=== PATIENT | female | born 1965 | race Caucasian/White ===

== ENCOUNTER 2019-09-18 18:46 | Observation (INO) | payer OTHER, SELFPAY ==
[2019-09-18] VITALS (7 sets, daily range): BP systolic 117–155; BP diastolic 70–91; PULSE 64–70; RESP 15–19; TEMP 35.9–36.8; O2SAT 97–100
--- NOTE | ~2019-09-18 | CT_ITS ---
EXAMINATION: CT BRAIN W/O DATE: 09/18/2019 19:25 INDICATION: Dizziness TECHNIQUE: Computed tomography (CT) of the head was performed without intravenous contrast. The dose- length product was 605.33 mGy-cm. The mA was adjusted according to patient size. Iterative reconstruc tion technique was employed. COMPARISON: No prior studies for comparison. FINDINGS: Normal brain parenchymal volume for age. Normal tovar-white differentiation. No acute intrac ranial hemorrhage, infarction, mass or mass effect. No ventriculomegaly or midline shift. Midline sagittal images demonstrate a normal corpus callosum, c raniovertebral junction and sella turcica. Basilar cisterns are patent. Paranasal sinuses and mastoids are pneumatized. No depressed skull fractures. There is a chronic defo rmity of the right lamina papyracea. IMPRESSION: 1. No acute intracranial abnormality. Reviewed, dictated and finalized at location A.
--- NOTE | ~2019-09-18 | XR_ITS ---
EXAMINATION: XR chest 1V portable 09/18/2019 19:30 INDICATION: Hypertension. Diabetes. Transient alteration of awareness. PROCEDURE: AP portable chest COMPARISON: No prior studies for comparison. FINDINGS: The lungs are clear. The cardiomediastinal silhouette is within normal limits. There are no pleural effusions. There is no pneumothorax suspected. IMPRESSION: 1: NO ACUTE CARDIOPULMONARY DISEASE. Reviewed, dictated and finalized at location A.
--- NOTE | 2019-09-18 18:57 | ECG_ITS ---
Measurements Intervals [place] Rate: 66 P: 50 PA: 166 QRS: 59 QRSD: 81 T: 46 QT: 415 QTc: 437 Interpretive Statements SINUS RHYTHM DELAYED PRECORDIAL R/S TRANSITION BORDERLINE ECG Electronically Signed On 09-18-2019 19:53:38 CDT by Primo Damon D.O.
--- NOTE | 2019-09-18 19:11 | ED.GENADULT ---
HPI - General Adult General Chief complaint: Dizziness Stated complaint: dizziness Time Seen by Provider: 09/18/19 19:02 Source: RN notes reviewed History of Present Illness HPI narrative: Patient presents emergency department from home via EMS for altered mental status. History is per the patient as well as family is present. Patient states she took a nap at around 3 PM this afternoon. According to the family the patient's mother tried to wake her up and was having a hard time waking her up and when she did wake her up her speech was slurred and she seemed mildly confused. Patient states she does not fully remember this episode. The current family states that the patient's mother had called him and he went over the house and patient continued to have some slurred speech and was telling a story did not make sense but noted no facial droop or weakness. Patient is currently more alert currently awake and alert x3 she denies any complaints at this time denies any fevers or chills chest pain shortness of breath abdominal pain nausea vomiting or any other symptoms. 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 She normally takes these 10 PM and 10 AM however today because she is not on her script girl she had taken her first dose at 8 AM and then took her second dose at approximately 2:30 PM before she took her nap today. Related Data Allergies Allergy/AdvReac Type Severity Reaction Status Date / Time Sulfa (Sulfonamide Allergy Itching Verified 09/18/19 19:17 Antibiotics) Review of Systems Review of Systems: Narrative: Gen.: Denies fevers or chills Eyes: Denies eye pain or visual change ENT: Denies congestion Respiratory: Denies shortness of breath or cough CV: Denies chest pain or palpitations GI: Denies abdominal pain nausea, emesis or diarrhea denies burning, urgency, frequency or hematuria Musculoskeletal: Denies back pain or muscle pain Neuro: See HPI Skin: Denies rash Except as documented, all other systems reviewed and negative [facility] Past Medical History Medical History (Updated 09/18/19 @ 20:46 by Keyshawn Luke DO) Diabetes mellitus Hypertension Social History Social History (Updated 09/18/19 @ 19:12 by Keyshawn Luke DO) Smoking packs per day: 0.5 Smoking cigarettes per day: 10.0 Gender identity (if verbalized by the patient): Female Exam Narrative: Exam Narrative: APPEARANCE: No acute distress, nontoxic, resting in bed HEENT: Normocephalic, atraumatic, OMM, TMs clear bilaterally EYES: PERRL, EOMI NECK: Supple, nontender, full range of motion without pain, no meningismus RESPIRATORY: No respiratory distress, clear to auscultation bilaterally with no rhonchi wheezing or rales CARDIOVASCULAR: RRR s murmur ABDOMINAL: Soft, nontender, nondistended MUSCULOSKELETAL: Moves all extremities. No clubbing, cyanosis or edema. NEURO: A and O ?3, following commands, speech normal, cranial nerves II through XII grossly intact,muscle strength 5 out of 5 bilateral upper and lower extremities SKIN:: Warm, dry. Normal Color PSYCHIATRIC: Normal affect/mood Course Course Emergency Course: Patient remains awake and alert x3 she will fall asleep in the bed but he is easily awoken suspect at this time current symptoms related to change in gabapentin dose and taking it less than 12 hours apart today Discussed Dr. Ramirez presentation work-up. Agrees with admission at this time Discussed with patient and family results of workup and diagnosis. Discussed need for admission. Patient and family understand and agree to current treatment plan Vital Signs Vital signs: Vital Signs Temperature 97.8 F 09/18/19 18:46 Pulse Rate 67 09/18/19 18:46 Respiratory Rate 15 09/18/19 18:46 Blood Pressure 132/91 H 09/18/19 18:46 Pulse Oximetry 100
[2019-09-18 19:17] LABS: Glucose Point of Care 100 (65-105)
[2019-09-18 19:23] LABS: Basophils Absolute Auto 0.1 K/mm3 (0.0-0.1); Basophils Percent Auto 0.8 % (0.2-1.2); Eosinophils Absolute Auto 0.2 K/mm3 (0-0.3); Eosinophils Percent Auto 2.5 % (0-4.4); Hematocrit 35.1 % (37.0-47.0); Hemoglobin 11.2 g/dL (12.0-15.0); Immature Granulocyte Absolute 0.01 K/mm3 (0.00-0.031); Immature Granulocyte Percent A 0.2 % (0-0.5); Lymphocytes Absolute Auto 3.24 K/mm3 (0.9-3.2); Mean Corpuscular HGB Conc 31.9 g/dl (32-36); Mean Corpuscular Hemoglobin 28.4 pg (26-34); Mean Corpuscular Volume 89.1 fl (80-100); Mean Platelet Volume 10.1 fl (7.4-10.4); Monocytes Absolute Auto 0.4 K/mm3 (0.1-0.6); Monocytes Percent Auto 6.8 % (2.6-8.5); Neutrophils Percent Auto 34.7 % (45.5-73.1); Platelet Count Result 331 k/mm3 (150-375); Red Blood Count 3.94 M/mm3 (4.2-5.4); Red Cell Distribution Width 14.1 % (11.5-14.5); White Blood Count 5.9 K/mm3 (4.5-10.0)
[2019-09-18 19:33] LABS: Partial Thromboplastin Time 27.5 SECONDS (22.3-36.8); Prothrombin Time 12.9 Seconds (11.1-14.7)
[2019-09-18 19:36] LABS: Alanine Aminotransferase 44 U/L (4-35); Albumin Level 4.1 g/dL (3.5-5.1); Alkaline Phosphatase 45 U/L (38-126); Aspartate Amino Transferase 33 U/L (14-36); Bilirubin,Total 0.3 mg/dL (0.2-1.3); Blood Urea Nitrogen 13 mg/dL (7-17); Calcium 9.7 mg/dL (8.4-10.2); Carbon Dioxide 26 mmol/L (22-30); Chloride 104 mmol/L (98-107); Estimated CRCL calculation 69 ml/min; Estimated Glomerular Filt Rate > 60; Glucose 106 mg/dL (65-105); Sodium 136 mmol/L (137-145)
[2019-09-18] MEDS: Please add drug allergy info to patient profile. 1 EACH XX (19:40)
[2019-09-18] MEDS: SODIUM CHLORIDE 0.9% IV 1,000 ML 999 ML IV CONT (19:40)
[2019-09-18 19:47] LABS: Troponin I < 0.012 ng/mL (0.000-0.034)
[2019-09-18 20:21] LABS: Add Urine Microscopic? NO; Appearance Urine Clear (Clear); Bilirubin Urine Negative (Negative); Blood Urine Negative (Negative); Color Urine Yellow (Yellow); Glucose Urine UA Negative (Negative); Ketones Urine Negative (Negative); Leukocyte Esterase Ur Negative LEU/UL (Negative); Nitrate Urine Negative (Negative); Protein Urine Negative (Negative); Specific Grav Ur 1.017 (1.001-1.035); Urobilinogen Urine Negative mg/dL (<2.0)
[2019-09-18] MEDS: ASPIRIN 81 MG CHEWABLE TABLET 324 MG PO (21:11)
--- NOTE | 2019-09-18 21:30 | PM.IMHP ---
H&P: HPI History of Present Illness Date/Time: 09/18/19 21:30 Chief complaint: Decreased responsiveness Narrative: This is a pleasant 53 year old Diabetic female with known chronic lower back pain from a herniated disk who presented to the hospital today secondary to decreased responsiveness. The patient is here visiting from [place] and recently juts had her gabapentin increased from 300 mg PO daily to twice daily. Her family found that they were having a hard time waking her up this afternoon around 3 pm. They also noticed that she had slurred speech when they woke up her. The patient was brought to the hospital for evaluation. The patient herself is easily arousable and is alert and oriented x 3. She has no focal deficits and denies any headache, fevers, chills, neck stiffness, blurry vision, difficulty swallowing, facial droop, focal weakness, numbness or tingling. The patient does not have any slurred speech on my encounter with her. ER workup has been unremarkable and CT brain was also negative for any acute intracranial pathology. We have been asked to admit the patient to observe her overnight. The patient has no previous history of heart disease or previous strokes. The patient's brother in law also mentioned that the patient today took one dose of gabapentin at 8 am this morning and her second dose around 2 pm this afternoon before she took a nap. She has no other complaints. Review of Systems Review of Systems: All systems reviewed & are unremarkable except as noted in HPI and below PMFSH Past Medical History Medical History Diabetes mellitus Hypertension Family History Family History (Updated 09/18/19 @ 22:36 by Arti Wagner RN) Father Asthma Sibling Asthma Mother Asthma Social History Social History Smoking packs per day: 0.75 Smoking cigarettes per day: 15.0 Years smoked: 30 Smoking pack-years: 22.50 Smoking status: Current every day smoker Tobacco type: cigarettes Alcohol intake: current Drinks per week: 1 Substance use: unknown Substance use type: does not use Gender identity (if verbalized by the patient): Female Spiritual care concerns: No Meds Home Medications and Allergies Home Medications Medication Instructions Recorded Confirmed Type aspirin 81 mg PO DAILY 09/18/19 09/18/19 History atorvastatin 80 mg PO DAILY 09/18/19 09/18/19 History bupropion HCl 200 mg PO DAILY 09/18/19 09/18/19 History famotidine 40 mg PO DAILY 09/18/19 09/18/19 History fenofibrate 160 mg PO DAILY 09/18/19 09/18/19 History fluoxetine 20 mg PO DAILY 09/18/19 09/18/19 History gabapentin 300 mg PO TID 09/18/19 09/18/19 History liraglutide [Victoza 2-Thomas] 1.2 mg SUBCUT DAILY 09/18/19 09/18/19 History losartan-hydrochlorothiazide 1 tablet PO DAILY 09/18/19 09/18/19 History meloxicam 7.5 mg PO DAILY 09/18/19 09/18/19 History metformin 500 mg PO BID 09/18/19 09/18/19 History propranolol 10 mg PO Q12H 09/18/19 09/18/19 History Allergies Allergy/AdvReac Type Severity Reaction Status Date / Time Sulfa (Sulfonamide Allergy Itching Verified 09/18/19 19:17 Antibiotics) Vital Signs Vital Signs - 24 hr 09/18/19 18:46 09/18/19 19:05 09/18/19 20:18 Temperature 36.6 C Pulse Rate 67 70 64 Respiratory Rate 15 17 19 Blood Pressure 132/91 H 123/70 119/76 Pulse Oximetry 100 97 100 Exam Const: General: cooperative and other (somnolent but easily arousable. ) Nutritional Appearance: obese Orientation/consciousness: patient oriented x3 HENMT: Head: normal to inspection General nose exam: Normal external nose present Face and sinus: normal facial exam Mouth: Yes Normal oral and palatal mucosa present and Yes oropharynx normal Eyes: Pupils: Equal, round and reactive pupils present EOM: EOMs intact bilaterally Neck: Neck: supple and no JVD Thyroid: thyroid normal Lymphati
[2019-09-18 21:31] LABS: Base Excess ABG -3.5 mEq/l (+/-2.0); Fractional Inspired Oxygen 21 %; HCO3 ABG 22.5 mEq/l (22.0-26.0); Oxygen Content ABG 15.3 %vol (16.0-22.0); Oxygen Saturation ABG 94.9 % (95.0-100.0); Oxyhemoglobin 91.9 % THb (90.0-100.0); PCO2 ABG 44.2 mmHg (35.0-45.0); PO2 ABG 79.8 mmHg (80.0-100.0); Total Hemoglobin 11.8 g/dL (12.0-18.0); pH ABG 7.324 (7.350-7.450)
[2019-09-18 21:32] LABS: Device ROOM AIR; Site Drawn RIGHT BRACHIAL
--- NOTE | 2019-09-18 22:26 | ADMGEN ---
This patient, Rita De La Vega, was admitted to Medical Room 249-01 at 2150. Patient/family oriented to hospital policies and general routines including ID bracelet, bed and alarms, visiting hours, pain management, procedures, bathroom and other care routines, personal items, smoking policy, room service/diet, and visiting hours. Valuables list has been completed. Information on how to activate the Rapid Response Team has been discussed. Patient/Family are encouraged to report perceived risks to care and to ask questions if they do not understand what they are told or what they should do.
[2019-09-18 23:09] LABS: Troponin I 0.012 ng/mL (0.000-0.034)
[2019-09-19] VITALS: PULSE 67
[2019-09-19 02:28] LABS: Basophils Absolute Auto 0.1 K/mm3 (0.0-0.1); Basophils Percent Auto 1.2 % (0.2-1.2); Eosinophils Absolute Auto 0.2 K/mm3 (0-0.3); Eosinophils Percent Auto 3.3 % (0-4.4); Hematocrit 33.9 % (37.0-47.0); Hemoglobin 10.6 g/dL (12.0-15.0); Immature Granulocyte Absolute 0.01 K/mm3 (0.00-0.031); Immature Granulocyte Percent A 0.2 % (0-0.5); Lymphocytes Absolute Auto 3.03 K/mm3 (0.9-3.2); Lymphocytes Percent Auto 58.6 % (18.3-44.2); Mean Corpuscular HGB Conc 31.3 g/dl (32-36); Mean Corpuscular Volume 89.7 fl (80-100); Mean Platelet Volume 10.1 fl (7.4-10.4); Monocytes Absolute Auto 0.4 K/mm3 (0.1-0.6); Monocytes Percent Auto 6.8 % (2.6-8.5); Neutrophils Absolute Auto 1.6 K/mm3 (1.3-6.7); Neutrophils Percent Auto 29.9 % (45.5-73.1); Platelet Count Result 324 k/mm3 (150-375); Red Blood Count 3.78 M/mm3 (4.2-5.4); Red Cell Distribution Width 14.1 % (11.5-14.5); White Blood Count 5.2 K/mm3 (4.5-10.0)
[2019-09-19 02:39] LABS: Anion Gap 7.8 mmol/L (7-16); Blood Urea Nitrogen 12 mg/dL (7-17); Carbon Dioxide 27 mmol/L (22-30); Chloride 106 mmol/L (98-107); Estimated CRCL calculation 78 ml/min; Estimated Glomerular Filt Rate > 60; Glucose 117 mg/dL (65-105); Potassium 3.8 mmol/L (3.4-5.0); Sodium 137 mmol/L (137-145)
[2019-09-19 02:53] LABS: Troponin I 0.016 ng/mL (0.000-0.034)
[2019-09-19 04:00] VITALS: PULSE 63
[2019-09-19 05:59] VITALS: BP 146/76; PULSE 66; RESP 16; TEMP 36.1; O2SAT 92
[2019-09-19 07:54] LABS: Glucose Point of Care 145 (65-105)
[2019-09-19 08:00] VITALS: PULSE 69
[2019-09-19] MEDS: ATORVASTATIN 40 MG TABLET 80 MG PO (08:23)
[2019-09-19] MEDS: ASPIRIN 81 MG CHEWABLE TABLET PO (08:24)
[2019-09-19] MEDS: metFORMIN HCL 500 MG TABLET PO (08:24)
[2019-09-19] MEDS: FENOFIBRATE 160 MG TABLET PO (08:24)
[2019-09-19] MEDS: FAMOTIDINE 20 MG TABLET 40 MG PO (08:24)
--- NOTE | 2019-09-19 09:24 | PM.DS ---
DS: Admitting Diagnosis Admitting Diagnosis Admitting Diagnosis: Unspecified symptoms and signs involving cognitive functions and awareness DS: Discharge Diagnosis Discharge Diagnosis (1) Decreased alertness: Code(s): R41.9 - Unspecified symptoms and signs involving cognitive functions and awareness Status: Resolved Assessment and Plan: Date of Service 09/19/19 Ms. De La Vega is a pleasant 53yo F with history of type 2 diabetes mellitus and hypertension from [place] in town visiting family who presented to the ED for evaluation of decreased responsiveness. Family had difficulty waking her from a nap and patient's speech was slurred. Patient noted she had recently been prescribed a higher dose of gabapentin that she was titrating up to. She was previously taking 300mg daily to titrate up to 300mg TID. Day of arrival, she had taken 300mg BID at 8am and again at 2pm prior to a nap. 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 CT brain and chest XR were normal. Telemetry in normal sinus rhythm. She is feeling well this morning, completely back to baseline and eager for discharge. She was hemodynamically stable for discharge 09/19/19 and will follow up with her PCP regarding her gabapentin titration. (2) Diabetes mellitus: Qualifiers: Diabetes mellitus type: type 2 Diabetes mellitus longterm insulin use: without longterm use Diabetes mellitus complication status: without complication Qualified Code(s): E11.9 - Type 2 diabetes mellitus without complications Code(s): E11.9 - Type 2 diabetes mellitus without complications Status: Chronic Assessment and Plan: Continue metformin and Victoza. (3) Hypertension: Qualifiers: Hypertension type: unspecified Qualified Code(s): I10 - Essential (primary) hypertension Code(s): I10 - Essential (primary) hypertension Status: Chronic Assessment and Plan: Stable, continue home antihypertensives. DS: Summary Time Spent with Patient Time attestation: Total time spent providing and/or coordinating discharge services: 35 minutes Exam Narrative: Exam Narrative: General: Female resting comfortably sitting up in bed in no acute distress. HEENT: Normocephalic, EOMI, PERRL, oral mucosa moist. Cardiovascular: Rate and rhythm are regular. No notable murmur, rub, or gallop. Respiratory: Lungs clear to auscultation all blackwell. Non-labored breathing. Abdomen: Soft, non-tender, non-distended, bowel sounds present. Extremities: Peripheral pulses intact. No edema. Neuro: No focal neurological deficits. Speech is clear. Cranial nerves II-XII intact as tested. Metal Model Builder strength, upper and lower extremity strength is normal and equal JANE. Tongue is midline, no facial asymmetry. DS: Data Data Completed and Pending Labs on day of discharge: Last Vital Signs Temp 96.9 F L 09/19/19 05:59 Pulse 69 09/19/19 08:00 Resp 16 09/19/19 05:59 BP 146/76 H 09/19/19 05:59 Pulse Ox 92 09/19/19 05:[address] 09/18/19 19:27 IMPRESSION: 1. No acute intracranial abnormality. Chest X-Ray 09/18/19 19:32 IMPRESSION: 1: NO ACUTE CARDIOPULMONARY DISEASE. Laboratory Tests 09/19/19 02:08 09/19/19 02:08 09/19/19 07:52 POC Capillary Glucose 145 H Discharge Plan Discharge Attending physician on discharge: Raúl Morejon Discharging Clinician: Liliya Law Anticipated Discharge Date/Time: 09/19/19 09:17 Patient Disposition: Home, Self-Care Activity: as tolerated Diet: as tolerated Discharge Instructions: Call your primary care provider to schedule a follow up appointment when you get back into town so you can establish a plan for titrating your gabapentin. Be sure to drink plenty of fluids to stay hydrated. Continue to monitor your sym
== END 2019-09-19 10:06 | disposition home or self-care (01) ==
LOC: ANHED 20:46 → ANH2MED 21:36
PROVIDERS: Admitting Provider Family Medicine; Emergency Provider Emergency Medicine; Visit Provider Internal Medicine
DX: R41.9 Unspecified symptoms and signs involving cognitive functions and awareness (principal); E11.9 Type 2 diabetes mellitus without complications; I10 Essential (primary) hypertension; M51.27 Other intervertebral disc displacement, lumbosacral region; G89.29 Other chronic pain; F17.210 Nicotine dependence, cigarettes, uncomplicated; Z79.82 Long term (current) use of aspirin; Z79.84 Long term (current) use of oral hypoglycemic drugs; Z79.899 Other long term (current) drug therapy
CPT/HCPCS: 36415; 36600; 70450; 71045; 80048; 80053; 81003; 82805; 82948; 84443; 84484; 85025; 85610; 85730; 93005; 96360; 99285; A9270; G0378; J7030

== ENCOUNTER 2022-07-25 06:35 | Observation (INO) | payer OTHER, SELFPAY ==
[2022-07-25] VITALS (7 sets, daily range): BP systolic 110–176; BP diastolic 65–98; PULSE 64–82; RESP 14–18; TEMP 35.4–36.7; O2SAT 96–100
--- NOTE | ~2022-07-25 | CT_ITS ---
CT of the Abdomen and Pelvis: Indication: Abdominal pain Technique: 2.5 mm axial scans were obtained through the abdomen and pelvis following intravenous adm inistration of 100 cc of Omnipaque 350. Dose reduction technique was used on this scan by utilizing a utomated exposure control and iterative reconstruction technique. The dose-length product (DLP) was 5 66.61 mGy-cm. Findings: Scans through the lung bases demonstrate 4 mm left lower lobe pulmonary nodule. There is probable diffuse fatty infiltration of the liver. The spleen, pancreas, gallbladder, adrenal s and kidneys are within normal limits. There are atherosclerotic calcifications of the aorta. No ly mphadenopathy. There is probable wall thickening and mild surrounding inflammatory change at the distal gastric body /gastric antrum extending to the duodenal bulb. No definite free air seen. No abscess identified. No bowel obstruction. Images through the pelvis were performed. Urinary bladder unremarkable. No adnexal mass seen. No asci bryan. Impression: Probable wall thickening with mild sparing inflammatory change the gastric antrum/duodenal bulb. Cons ider peptic ulcer disease or other gastritis/duodenitis. No CT evidence for perforation or abscess. Probable diffuse fatty infiltration of liver. 4 mm left lower lobe pulmonary nodule. According to Fleischner Society criteria, for a low-risk patie nt, no further follow-up required. For a high-risk patient, consider 12 month follow-up CT. Reviewed, dictated and finalized at [facility]. Impression: Probable wall thickening with mild sparing inflammatory change the gastric antr um/duodenal bulb. Consider peptic ulcer disease or other gastritis/duodenitis. No CT evidence for perforation or abscess. Probable diffuse fatty infiltration of liver. 4 mm left lower lobe pulmonary nodule. According to Fleischner Society criteria , for a low-risk patient, no further follow-up required. For a high-risk patien t, consider 12 month follow-up CT.
--- NOTE | 2022-07-25 07:17 | PC.NURSE ---
patient states abdominal pain began yesterday and got worse in the evening. patient also began vomiting and having diarrhea that began yesterday afternoon/evening
[2022-07-25 07:33] LABS: Basophils Percent Auto 0.3 % (0.2-1.2); Eosinophils Absolute Auto 0.2 K/mm3 (0-0.3); Eosinophils Percent Auto 1.7 % (0-4.4); Hematocrit 42.3 % (37.0-47.0); Hemoglobin 13.4 g/dL (12.0-15.0); Immature Granulocyte Absolute 0.04 K/mm3 (0.00-0.031); Immature Granulocyte Percent A 0.3 % (0-0.5); Lymphocytes Absolute Auto 1.72 K/mm3 (0.9-3.2); Lymphocytes Percent Auto 14.6 % (18.3-44.2); Mean Corpuscular HGB Conc 31.7 g/dl (32-36); Mean Corpuscular Hemoglobin 28.9 pg (26-34); Mean Corpuscular Volume 91.4 fl (80-100); Mean Platelet Volume 9.6 fl (7.4-10.4); Monocytes Absolute Auto 0.7 K/mm3 (0.1-0.6); Monocytes Percent Auto 5.9 % (2.6-8.5); Neutrophils Absolute Auto 9.1 K/mm3 (1.3-6.7); Neutrophils Percent Auto 77.2 % (45.5-73.1); Platelet Count Result 453 k/mm3 (150-375); Red Blood Count 4.63 M/mm3 (4.2-5.4); Red Cell Distribution Width 13.9 % (11.5-14.5); White Blood Count 11.8 K/mm3 (4.5-10.0)
[2022-07-25] MEDS: ONDANSETRON INJ 4 MG/2 ML VIAL IV PUSH (07:41)
--- NOTE | 2022-07-25 07:41 | ED.ABDPAIN ---
HPI - Abdominal Pain General Chief Complaint: Abdominal Pain Stated Complaint: abd pain Time Seen by Provider: 07/25/22 07:41 Source: patient History of Present Illness HPI narrative: 56 years old white female presents with upper abdominal pain that started yesterday, intermittent, steady today. Sharp stabbing, no radiation, associated with nausea and vomiting. Patient denies any fever or history of abdominal surgery. History of diabetes, hypertension, hyperlipidemia, asthma, pancreatitis, alcohol use and tobacco abuse. Related Data Home Medications Medication Instructions Recorded Confirmed aspirin 81 mg chewable tablet 81 mg PO DAILY 09/18/19 09/18/19 atorvastatin 80 mg tablet 80 mg PO DAILY 09/18/19 09/18/19 bupropion HCl 200 mg tablet,12 hr 200 mg PO DAILY 09/18/19 09/18/19 sustained-release famotidine 40 mg tablet 40 mg PO DAILY 09/18/19 09/18/19 fenofibrate 160 mg tablet 160 mg PO DAILY 09/18/19 09/18/19 fluoxetine 20 mg capsule 20 mg PO DAILY 09/18/19 09/18/19 liraglutide 0.6 mg/0.1 mL (18 mg/3 1.2 mg subcut DAILY 09/18/19 09/18/19 mL) subcutaneous pen injector (Keelr 2-Thomas) losartan 50 mg-hydrochlorothiazide 1 tablet PO DAILY 09/18/19 09/18/19 12.5 mg tablet meloxicam 7.5 mg tablet 7.5 mg PO DAILY 09/18/19 09/18/19 metformin 500 mg tablet 500 mg PO BID 09/18/19 09/18/19 propranolol 10 mg tablet 10 mg PO Q12H 09/18/19 09/18/19 Allergies Allergy/AdvReac Type Severity Reaction Status Date / Time Sulfa (Sulfonamide Allergy Itching Verified 07/25/22 07:38 Antibiotics) Review of Systems Review of Systems: All systems reviewed & are unremarkable except as noted in HPI and below PMFSH Past Medical History Medical History Diabetes mellitus Hypertension Family History Family History Father Asthma Sibling Asthma Mother Asthma Social History Social History Smoking packs per day: 0.75 Smoking cigarettes per day: 15.0 Years smoked: 30 Smoking pack-years: 22.50 Smoking status: Current every day smoker Tobacco type: cigarettes Alcohol intake: current Drinks per week: 1 Substance use: unknown Substance use type: does not use Gender identity (if verbalized by the patient): Female Spiritual care concerns: No Exam Narrative: General appearance: Well-developed, well-nourished Skin: Normal color Head: Normocephalic, nontraumatic Eyes: Clear conjunctiva ENT: Oropharynx normal, ears normal, nose normal Neck: Supple, nontender Chest and respiratory: Airway patent, no respiratory distress, no accessory muscle use Heart: Regular rate/rhythm Abdomen: Diffuse tenderness mainly upper abdomen bilaterally in the epigastric area. Slight guarding, no rebound, quiet bowel sounds Vascular: Normal peripheral pulses, normal capillary refill. 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 Date: 07/25/22 Time: 08:24 Consultations Consultation #1: [place] Date: 07/25/22 Time: 09:44 Vital Signs Vital signs: Vital Signs Temperature 36.7 C 07/25/22 06:41 Pulse Rate 81 07/25/22 06:41 Respiratory Rate 18 07/25/22 06:41 Blood Pressure 176/98 H 07/25/22 06:41 Pulse Oximetry 100 07/25/22 06:41 Oxygen Delivery Room Air 07/25/22 06:41 Temperature 36.7 C 07/25/22 06:41 Pulse Rate 82 07/25/22 07:37 Respiratory Rate 16
[2022-07-25 07:47] LABS: Alanine Aminotransferase 26 U/L (6-35); Albumin Level 4.4 g/dL (3.5-5.1); Alkaline Phosphatase 59 U/L (38-126); Anion Gap 9 mmol/L (8-16); Aspartate Amino Transferase 23 U/L (14-36); Bilirubin,Total 0.5 mg/dL (0.2-1.3); Blood Urea Nitrogen 11 mg/dL (7-17); Carbon Dioxide 29 mmol/L (22-30); Chloride 97 mmol/L (98-107); Estimated CRCL calculation 65 ml/min; Estimated Glomerular Filt Rate > 60; Glucose 163 mg/dL (65-110); Lipase 461 U/L (23-300); Potassium 4.1 mmol/L (3.4-5.0); Sodium 135 mmol/L (137-145)
[2022-07-25] MEDS: HYDROmorphone HCL INJ (*CRX) 1 MG/ML SYR 0.5 MG IV PUSH ×3 (08:02→20:41)
[2022-07-25] MEDS: SODIUM CHLORIDE 0.9% IV 1,000 ML 999 ML IV CONT (08:02)
--- NOTE | 2022-07-25 08:06 | PC.NURSE ---
pt taken to CT at this time.
--- NOTE | 2022-07-25 08:16 | PC.NURSE ---
pt arriving back to room from CT at this time
[2022-07-25] MEDS: PANTOPRAZOLE SODIUM IV 40 MG VIAL IV PUSH ×2 (10:18→17:09)
[2022-07-25] MEDS: SODIUM CHLORIDE 0.9% IV 1,000 ML 150 ML IV CONT ×3 (10:19→23:57)
[2022-07-25 10:46] LABS: Appearance Urine Clear (Clear); Bilirubin Urine Negative (Negative); Blood Urine Negative (Negative); Color Urine Yellow (Yellow); Glucose Urine UA Negative (Negative); Ketones Urine Negative (Negative); Leukocyte Esterase Ur Negative LEU/UL (Negative); Nitrate Urine Negative (Negative); Protein Urine Negative (Negative); Urobilinogen Urine 0.2 mg/dL (<2.0)
[2022-07-25 10:52] LABS: Add Urine Microscopic? NO; Specific Grav Ur 1.073 (1.001-1.035)
--- NOTE | 2022-07-25 11:19 | PC.NURSE ---
report received from Nessa CHRISTOPHER
--- NOTE | 2022-07-25 12:25 | PC.NURSE ---
[id number] Admission Note: The patient,Rita De La Vega,56 y/o, was given written information regarding hospital policies, unit procedures and contact persons. Patient's smoking status: Current every day smoker.
--- NOTE | 2022-07-25 12:30 | PM.IMHP ---
H&P: HPI History of Present Illness Date/Time: 07/25/22 12:30 Chief Complaint: abdominal pain Narrative: this is a 56-year-old female patient who came to the emergency room with complaint of upper abdominal pain that 30 yesterday with intermittent yesterday but is now steady today. The patient stated is sharp and stabbing. No radiation. The patient had a history pancreatitis in the past. No previous history of abdominal surgery. The patient does have diabetes and stated that she had pancreatitis in the past due to her High triglycerides. White count 11.8. Blood sugar 163. Lipase 461. Abdominal pelvis CT was read as a follow-upProbable wall thickening with mild sparing inflammatory change the gastric antrum/duodenal bulb. Consider peptic ulcer disease or other gastritis/duodenitis. No CT evidence for perforation or abscess. Probable diffuse fatty infiltration of liver. 4 mm left lower lobe pulmonary nodule. According to Fleischner Society criteria, for a low-risk patient, no further follow-up required. For a high-risk patient, consider [address] the patient was given Zofran, IV fluids, Dilaudid when Protonix. The patient is being admitted to observation status on the date of service of 07/25/2022. Review of Systems Review of Systems: All systems reviewed & are unremarkable except as noted in HPI and below Constitutional: Constitutional: Reports as per HPI and Reports no additional constitutional complaints Eyes: Eyes: Reports as per HPI and Reports no additional eye complaints ENT: Reports system reviewed and no additional complaints, except as documented and Reports Normal hearing present Cardiovascular: Cardiovascular: Reports no additional cardiovascular complaints Respiratory: Respiratory: Reports no additional respiratory complaints and Reports no additional respiratory complaints Gastrointestinal: Gastrointestinal: Reports as per HPI and Reports no additional gastrointestinal complaints Musculoskeletal: Musculoskeletal: Reports no additional musculoskeletal complaints Integumentary/Breasts: Skin/Breast: Reports system reviewed and no additional complaints, except as docu and Reports as per HPI Neurologic: Reports system reviewed and no additional complaints, except as documented, Reports as per HPI and Reports Normal hearing present Psychiatric: Psychiatric: Reports no additional psychiatric complaints and Reports as per HPI Endocrine: Endocrine: Reports no additional endocrine complaints Hematologic/Lymphatic: Hematologic/Lymphatic: Reports no additional hematologic/lymphatic complaints Allergic/Immunologic: Allergic/Immunologic: Reports no additional allergic/immunologic complaints [facility] Past Medical History Medical History (Updated 07/25/22 @ 14:55 by Constance Rodriguez NP) Asthma Benign familial tremor Depression with anxiety Diabetes mellitus Hyperlipidemia Hypertension Peptic ulcer disease Surgical History Surgical History (Updated 07/25/22 @ 14:55 by Constance Rodriguez NP) H/O esophagogastroduodenoscopy Family History Family History (Updated 07/25/22 @ 14:57 by Constance Rodriguez NP) Father Diabetes mellitus Hypertension Hyperlipidemia Familial tremor Mother Cholangiocarcinoma Social History Social History (Updated 07/25/22 @ 14:58 by Constance Rodriguez NP) Social History: the patient stated she does continue to smoke cigarettes. She rarely drinks. She has no children and she is single. She lives in [facility] but is here visiting her mother who has terminal illness. She has an occasional glass of wine and occasional marijuana. Code status full code Smoking packs per day: 0.75 Smoking cigarettes per day: 15.0 Years smoked: 30 Smoking pack-years: 22.50 Smoking status: Former smoker Tobacco type: cigarettes Alcohol intake: current Drinks per week: 3 Substance use: unknown Substance use type: does not use Lack of Transportation:
--- NOTE | 2022-07-25 17:04 | WPDGICN ---
Assessment and Plan Assessment and plan (1) Epigastric pain: Code(s): R10.13 - Epigastric pain Status: Acute Assessment and Plan: better but not gone will repeat egd in am, ct scan possible PUD (2) Nausea and vomiting in adult: Code(s): R11.2 - Nausea with vomiting, unspecified Status: Acute Assessment and Plan: improved medical treatment (3) Abnormal CT scan, stomach: Code(s): R93.3 - Abnormal findings on diagnostic imaging of other parts of digestive tract Status: Acute Assessment and Plan: will proceed with egd in am (4) Diabetes mellitus: Qualifiers: Diabetes mellitus type: type 2 Diabetes mellitus jail insulin use: without jail use Diabetes mellitus complication status: without complication Qualified Code(s): E11.9 - Type 2 diabetes mellitus without complications Code(s): E11.9 - Type 2 diabetes mellitus without complications Status: Chronic (5) Hypertension: Qualifiers: Hypertension type: unspecified Qualified Code(s): I10 - Essential (primary) hypertension Code(s): I10 - Essential (primary) hypertension Status: Chronic (6) History of pancreatitis: Code(s): Z87.19 - Personal history of other diseases of the digestive system Status: Acute Assessment and Plan: related to TG GI Consult Note Consult date/time: 07/25/22 17:04 Reason for consult: n/v, abnormal stomach by ct scan HPI: Rita De La Vega is a 56 year old female with history of pancreatitis due to high TG, DM. She is here with new onset of severe epigastric pain associated to n/v, pain sharp and stabbing.?No radiation.? She thought that could be another episode of pancreatitis. She is from [place] and is visiting family, decided to come to ER. She has GERD and using famotidine, about 3 months ago had egd/colonoscopy- unremarkable. Blood work white count 11.8.? Blood sugar 163.? Lipase 461.? Abdominal pelvis CT reviewed and had probable wall thickening with mild sparing inflammatory change the gastric antrum/duodenal bulb. Consider peptic ulcer disease or other gastritis/duodenitis. No CT evidence for perforation or abscess. Probable diffuse fatty infiltration of liver. No more nausea but still some pain. Review of Systems Constitutional: Constitutional: Denies chills Eyes: Eyes: Denies blurry vision ENT: Reports Normal hearing present Cardiovascular: Cardiovascular: Denies chest pain Respiratory: Respiratory: Denies chest congestion Gastrointestinal: Gastrointestinal: Reports abdominal pain and Reports nausea Genitourinary: Genitourinary: Denies hematuria Musculoskeletal: Musculoskeletal: Denies arthralgias Integumentary/Breasts: Skin/Breast: Denies rash Neurologic: Denies Abnormal speech present Psychiatric: Psychiatric: Denies behavioral changes [facility] Past Medical History Medical History (Updated 07/25/22 @ 17:08 by Nasir Samuels MD) Abnormal CT scan, stomach Asthma Benign familial tremor Depression with anxiety Diabetes mellitus Epigastric pain History of pancreatitis Hyperlipidemia Hypertension Nausea and vomiting in adult Peptic ulcer disease Surgical History Surgical History (Updated 07/25/22 @ 14:55 by Constance Rodriguez NP) H/O esophagogastroduodenoscopy Family History Family History (Updated 07/25/22 @ 14:57 by Constance Rodriguez NP) Father Diabetes mellitus Hypertension Hyperlipidemia Familial tremor Mother Cholangiocarcinoma Social History Social History (Updated 07/25/22 @ 14:58 by Constance Rodriguez NP) Social History: the patient stated she does continue to smoke cigarettes. She rarely drinks. She has no children and she is single. She lives in [facility] but is here visiting her mother who has terminal illness. She has an occasional glass of wine and occasional marijuana. Code status full code Smoking packs per day: 0.75 Smoking
[2022-07-25] MEDS: traMADol HCL (*CRX) 25 MG TABLET PO (17:06)
[2022-07-25] MEDS: GABAPENTIN 300 MG CAPSULE 600 MG PO (17:08)
[2022-07-25] MEDS: FLUTICASONE PROP 44 MCG (*SP) 10.6 GM 2 PUFF INHALATION (20:16)
[2022-07-25 21:49] LABS: Glucose Point of Care 121 mg/dl (65-105)
[2022-07-26] VITALS (7 sets, daily range): BP systolic 104–155; BP diastolic 57–79; PULSE 59–75; RESP 15–20; TEMP 35.6–36.4; O2SAT 96–100
[2022-07-26] MEDS: PANTOPRAZOLE SODIUM IV 40 MG VIAL IV PUSH ×2 (01:22→12:43)
[2022-07-26] MEDS: traMADol HCL (*CRX) 25 MG TABLET PO (05:30)
[2022-07-26 06:19] LABS: Basophils Percent Auto 0.2 % (0.2-1.2); Eosinophils Absolute Auto 0.2 K/mm3 (0-0.3); Eosinophils Percent Auto 3.9 % (0-4.4); Hematocrit 33.3 % (37.0-47.0); Hemoglobin 10.4 g/dL (12.0-15.0); Immature Granulocyte Absolute 0.01 K/mm3 (0.00-0.031); Immature Granulocyte Percent A 0.2 % (0-0.5); Lymphocytes Absolute Auto 1.86 K/mm3 (0.9-3.2); Lymphocytes Percent Auto 40.8 % (18.3-44.2); Mean Corpuscular HGB Conc 31.2 g/dl (32-36); Mean Corpuscular Hemoglobin 29.2 pg (26-34); Mean Corpuscular Volume 93.5 fl (80-100); Mean Platelet Volume 9.8 fl (7.4-10.4); Monocytes Absolute Auto 0.3 K/mm3 (0.1-0.6); Monocytes Percent Auto 6.8 % (2.6-8.5); Neutrophils Absolute Auto 2.2 K/mm3 (1.3-6.7); Neutrophils Percent Auto 48.1 % (45.5-73.1); Platelet Count Result 339 k/mm3 (150-375); Red Blood Count 3.56 M/mm3 (4.2-5.4); White Blood Count 4.6 K/mm3 (4.5-10.0)
[2022-07-26 06:35] LABS: Lactic Acid Reflex 0.8 mmol/L (0.7-2.0)
[2022-07-26] MEDS: SODIUM CHLORIDE 0.9% IV 1,000 ML 150 ML IV CONT (06:36)
[2022-07-26 06:43] LABS: Alanine Aminotransferase 23 U/L (6-35); Albumin Level 3.2 g/dL (3.5-5.1); Alkaline Phosphatase 44 U/L (38-126); Anion Gap 1 mmol/L (8-16); Aspartate Amino Transferase 25 U/L (14-36); Bilirubin,Total 0.3 mg/dL (0.2-1.3); Blood Urea Nitrogen 6 mg/dL (7-17); Calcium 8.1 mg/dL (8.4-10.2); Carbon Dioxide 31 mmol/L (22-30); Chloride 105 mmol/L (98-107); Cholesterol 149 mg/dL (0-200); Estimated CRCL calculation 73 ml/min; Estimated Glomerular Filt Rate > 60; Glucose 128 mg/dL (65-110); HDL Direct 33 mg/dL; Lipase 128 U/L (23-300); Magnesium 1.5 mg/dL (1.6-2.3); Potassium 3.7 mmol/L (3.4-5.0); Sodium 137 mmol/L (137-145); Triglycerides 301 mg/dL (<150)
[2022-07-26 06:54] LABS: LDL Cholesterol Direct 80 mg/dL
[2022-07-26] MEDS: FLUTICASONE PROP 44 MCG (*SP) 10.6 GM 2 PUFF INHALATION (08:15)
[2022-07-26] MEDS: MAGNESIUM SULFATE 3GM/D5W100ML 3 GM/100 ML BAG IVPB (08:27)
[2022-07-26 08:29] LABS: Glucose Point of Care 117 mg/dl (65-105)
[2022-07-26] MEDS: ATORVASTATIN 40 MG TABLET 80 MG PO (10:22)
[2022-07-26] MEDS: FLUoxetine HCL 20 MG CAPSULE PO (10:23)
[2022-07-26] MEDS: buPROPion HCL XL (24 HR) 150 MG TABCR PO (10:24)
[2022-07-26] MEDS: GABAPENTIN 300 MG CAPSULE 600 MG PO (10:24)
[2022-07-26 11:31] LABS: Glucose Point of Care 130 mg/dl (65-105)
[2022-07-26 13:14] LABS: Glucose Point of Care 102 mg/dl (65-105)
--- NOTE | 2022-07-26 13:30 | WPDANESEPPF ---
Anes - Initial Pre Proc Eval Procedure: Operation Date: 07/26/22 14:15 Proposed Procedures p Esophagogastroduodenoscopy - Nasir Samuels MD Date/Time: 07/26/22 13:30 Surgeon: Reed Ventura MD Pre Op Diagnosis: Abdominal Pain,Intractable Vomiting,Elevated Lipas Patient Data Age: 56 Gender: F Height: 1.55 m Weight: 74.84 kg Last Vital Signs Temp 36.4 C 07/26/22 13:16 Pulse 65 07/26/22 13:16 Resp 18 07/26/22 13:16 BP 138/69 07/26/22 13:16 Pulse Ox 100 07/26/22 13:16 O2 Del Method Room Air 07/26/22 13:16 Allergies Allergy/AdvReac Type Severity Reaction Status Date / Time almond Allergy Swelling Verified 07/26/22 13:14 Sulfa (Sulfonamide Allergy Itching Verified 07/26/22 13:14 Antibiotics) Home Medications Medication Instructions Recorded Confirmed Type aspirin 81 mg chewable tablet 81 mg PO DAILY 09/18/19 07/25/22 History atorvastatin 80 mg tablet 80 mg PO DAILY 09/18/19 07/25/22 History bupropion HCl 200 mg tablet,12 hr 150 mg PO DAILY 09/18/19 07/25/22 History sustained-release famotidine 40 mg tablet 40 mg PO DAILY 09/18/19 07/25/22 History fenofibrate 160 mg tablet 160 mg PO DAILY 09/18/19 07/25/22 History fluoxetine 20 mg capsule 20 mg PO DAILY 09/18/19 07/25/22 History losartan 50 mg-hydrochlorothiazide 1 tablet PO DAILY 09/18/19 07/25/22 History 12.5 mg tablet metformin 500 mg tablet 1,000 mg PO BID 09/18/19 07/25/22 History propranolol 10 mg tablet 10 mg PO Q12H PRN Tremor(S) 09/18/19 07/25/22 History albuterol sulfate 90 mcg/actuation 2 puff inhalation Q4H PRN 07/25/22 07/25/22 History aerosol inhaler Shortness Of Breath Or Wheezing ciclesonide 80 mcg/actuation 1 puff inhalation DAILY 07/25/22 07/25/22 History aerosol inhaler (Alvesco) gabapentin 300 mg capsule 600 mg PO BID 07/25/22 07/25/22 History semaglutide 2 mg/dose (8 mg/3 mL) 2 mg subcut WEEKLY 07/25/22 07/25/22 History subcutaneous pen injector (Ozempic) Laboratory Tests 07/25/22 07/26/22 07/26/22 20:49 05:53 08:26 WBC 4.6 K/mm3 (4.5-10.0) RBC 3.56 L M/mm3 (4.2-5.4) Hgb 10.4 L D g/dL (12.0-15.0) Hct 33.3 L % (37.0-47.0) MCV 93.5 fl (80-100) MCH 29.2 pg (26-34) MCHC 31.2 L g/dl (32-36) RDW 14.0 % (11.5-14.5) Plt Count 339 k/mm3 (150-375) MPV 9.8 fl (7.4-10.4) Immature Gran % (Auto) 0.2 % (0-0.5) Neut % (Auto) 48.1 % (45.5-73.1) Lymph % (Auto) 40.8 % (18.3-44.2) [place] % (Auto) 6.8 % (2.6-8.5) Eos % (Auto) 3.9 % (0-4.4) Baso % (Auto) 0.2 % (0.2-1.2) Lymph # (Auto) 1.86 K/mm3 (0.9-3.2) [place] # (Auto) 0.3 K/mm3 (0.1-0.6) Eos # (Auto) 0.2 K/mm3 (0-0.3) Baso # (Auto) 0.0 K/mm3 (0.0-0.1) Abs Immat Gran (auto) 0.01 K/mm3 (0.00-0.031) Absolute Neuts (auto) 2.2 K/mm3 (1.3-6.7) Absolute Nucleated RBC 0.0 K/mm3 (0.0-0.012) Nucleated RBC % 0.0 % (0.0-0.2) Sodium 137 mmol/L (137-145) Potassium 3.7 mmol/L (3.4-5.0) Chloride 105 mmol/L (98-107) Carbon Dioxide 31 H mmol/L (22-30) Anion Gap 1 L mmol/L (8-16) BUN 6 L D mg/dL (7-17) Creatinine 0.70 mg/dL (0.7-1.0) Estim Creat Clear Calc 73 ml/min Estimated GFR > 60 (59 - ) Glucose 128 H mg/dL (65-110) POC Capillary Glucose 121 H mg/dl 117 H mg/dl (65-105) (65-105) Lactic Acid 0.8 mmol/L (0.7-2.0) Calcium 8.1 L mg/dL (8.4-10.2) Magnesium 1.5 L mg/dL (1.6-2.3) Total Bilirubin 0.3 mg/dL (0.2-1.3) AST 25 U/L (14-36) ALT 23 U/L (6-35) Alkaline Phosphatase 44 U/L (38-126) Total Protein 6.0 L g/dL (6.3-8.2) Albumin 3.2 L g/dL (3.5
[2022-07-26] MEDS: LACTATED RINGERS 1,000 ML 150 ML IV CONT (14:30)
[2022-07-26 14:52] LABS: Glucose Point of Care 88 mg/dl (65-105)
--- NOTE | 2022-07-26 15:34 | PM.DS ---
DS: Admitting Diagnosis Discharge Date Admitting Diagnosis Gastritis suspected PUD DS: Discharge Diagnosis Discharge Diagnosis (1) Abdominal pain: Qualifiers: Abdominal location: upper abdomen, unspecified Qualified Code(s): R10.10 - Upper abdominal pain, unspecified Code(s): R10.9 - Unspecified abdominal pain Status: Acute (2) Asthma: Code(s): J45.909 - Unspecified asthma, uncomplicated Status: Acute (3) Hyperlipidemia: Code(s): E78.5 - Hyperlipidemia, unspecified Status: Acute (4) Diabetes mellitus: Qualifiers: Diabetes mellitus type: type 2 Diabetes mellitus half-way insulin use: without intermediate accountant use Diabetes mellitus complication status: without complication Qualified Code(s): E11.9 - Type 2 diabetes mellitus without complications Code(s): E11.9 - Type 2 diabetes mellitus without complications Status: Chronic (5) Hypertension: Qualifiers: Hypertension type: unspecified Qualified Code(s): I10 - Essential (primary) hypertension Code(s): I10 - Essential (primary) hypertension Status: Chronic DS: Summary Hospital Course Hospital Course: This is a 56-year-old female with a past medical history of hyperlipidemia, GERD, diabetes and hypertension that presented to the ED on 07/25/2022 due to epigastric abdominal pain. She denied radiation and has no history of prior IR abdominal surgery. Does have a history of pancreatitis. Labs revealed elevated white count of 11.8 and lipase at 461. [address] abdomen pelvis show probable wall thickening with mild sparing inflammatory change in the gastric antrum/ duodenal bulb. GI was consulted an EGD planned for 07/26/2022. Gastric ulcer was found in the antrum. Mild duodenitis was also visualized. Biopsies were taken and H pylori tested. GI recommending patient be on Protonix 40 mg twice daily. GI has cleared patient for discharge. Time Spent with Patient Time attestation: Total time spent providing and/or coordinating discharge services: Exam Narrative: GENERAL: Comfortable, no acute distress HENMT: moist mucous membranes EYES: EOM intact b/l NECK: no lymphadenopathy RESPIRATORY: clear to auscultation CARDIO: RRR GI: soft, nontender, bowel sounds present SKIN: no rashes EXTREMITIES: no edema, redness or tenderness DS: Data Data Completed and Pending Pending studies at discharge: Pending at discharge 07/26/22 14:31 Surgical [PTH] Routine Labs on day of discharge: Labs from last 24 hours 07/26/22 07/26/22 07/26/22 14:47 13:10 11:23 WBC RBC Hgb Hct MCV MCH MCHC RDW Plt Count MPV Immature Gran % (Auto) Neut % (Auto) Lymph % (Auto) [place] % (Auto) Eos % (Auto) Baso % (Auto) Lymph # (Auto) [place] # (Auto) Eos # (Auto) Baso # (Auto) Abs Immat Gran (auto) Absolute Neuts (auto) Absolute Nucleated RBC Nucleated RBC % Sodium Potassium Chloride Carbon Dioxide Anion Gap BUN Creatinine Estim Creat Clear Calc Estimated GFR Glucose POC Capillary Glucose 88 102 130 H Lactic Acid Calcium Magnesium Total Bilirubin AST ALT Alkaline Phosphatase Total Protein Albumin Triglycerides Cholesterol LDL Cholesterol Direct HDL Direct Lipase TSH (Reflex) 07/26/22 07/26/22 07/25/22 08:26 05:53 20:49 WBC 4.6 RBC 3.56 L Hgb 10.4 L D Hct 33.3 L MCV 93.5 MCH 29.2 MCHC 31.2 L RDW 14.0 Plt Count 339 MPV 9.8 Immature Gran % (Auto) 0.2 Neut % (Auto) 48.1 Lymph % (Auto) 40.8 [place] % (Auto) 6.8 Eos % (Auto) 3.9 Baso % (Auto) 0.2 Lymph # (Auto) 1.86 [place] # (Auto) 0.3 Eos # (Auto) 0.2 Baso # (Auto) 0.0 Abs Immat Gran (auto) 0.01 Absolute Neuts (auto) 2.2 Absolute Nucleated RBC 0.0 Nucleated RBC % 0.0 Sodium 137
== END 2022-07-26 16:25 | disposition home or self-care (01) ==
LOC: ANHED 09:31 → ANH3MEDSUR 07-26 08:11
PROVIDERS: Internal Medicine Gastroenterology; Nurse Practitioner; Admitting Provider Hospitalist; Emergency Provider Emergency Medicine; Visit Provider Internal Medicine
PROC: 0DJ08ZZ Inspection of Upper Intestinal Tract, Via Natural or Artificial Opening Endoscopic (ICD-10-PCS; CPT 43235; principal; 2022-07-26 14:15)
DX: K25.9 Gastric ulcer, unspecified as acute or chronic, without hemorrhage or perforation (principal); K29.80 Duodenitis without bleeding; R93.3 Abnormal findings on diagnostic imaging of other parts of digestive tract; E11.9 Type 2 diabetes mellitus without complications; I10 Essential (primary) hypertension; E78.5 Hyperlipidemia, unspecified; J45.909 Unspecified asthma, uncomplicated; K27.9 Peptic ulcer, site unspecified, unspecified as acute or chronic, without hemorrhage or perforation; K21.9 Gastro-esophageal reflux disease without esophagitis; K85.90 Acute pancreatitis without necrosis or infection, unspecified; R74.8 Abnormal levels of other serum enzymes; F48.1 Depersonalization-derealization syndrome; R91.1 Solitary pulmonary nodule; F17.210 Nicotine dependence, cigarettes, uncomplicated; F10.90 Alcohol use, unspecified, uncomplicated; Z79.82 Long term (current) use of aspirin; Z79.85 Long-term (current) use of injectable non-insulin antidiabetic drugs; Z79.84 Long term (current) use of oral hypoglycemic drugs; Z79.899 Other long term (current) drug therapy; Z83.3 Family history of diabetes mellitus; Z82.49 Family history of ischemic heart disease and other diseases of the circulatory system; Z83.438 Family history of other disorder of lipoprotein metabolism and other lipidemia
CPT/HCPCS: 43239; 36415; 74177; 80053; 80061; 81003; 82948; 83605; 83690; 83735; 84443; 85025; 87081; 88305; 88342; 94640; 96361; 96374; 96375; 96376; 99285; A9270; C9113; G0378; J1170; J2405; J2704; J3475; J7030; J7120; Q9967